=== PATIENT | male | born 1955 | race Caucasian/White ===

== ENCOUNTER 2020-07-25 21:07 | Emergency (ER) | payer OTHER, MEDICAID ==
[~2020-07-25] VITALS: Ht 160 cm; Wt 63.5 kg
[~2020-07-25 21:07] MED LIST: ACET-2619 PO; ATOR10TA51 PO; BISA10SU1 RC; CHLO20TA PO; COL250 PO; LORA10TA19 PO; MAGN400S60 PO; MULT-1640 PO; OMEP20TC10 PO; [UNRECOGNIZED DRUG - CODE] PO
[2020-07-25 21:48] VITALS: BP 125/81
--- NOTE | 2020-07-25 21:56 | NUR ---
Dr. Tineo at triage for MSE.
--- NOTE | 2020-07-25 21:57 | NUR ---
To ED bed 07
--- NOTE | 2020-07-25 22:10 | NUR ---
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 PT IS INTELLECTUALLY DISABLED. DATA CENTER ARCHITECT STATES PT FELL OFF TOILET AROUND 1999. LACERATION NEAR LEFT EYEBROW, AND CONTUSION NEAR LEFT CHEEK. DATA CENTER ARCHITECT DENIES PT LOC. PT UNABLE TO VERBALIZE PAIN. NO DISTRESS NOTED. PERRLA, A&O X1, VSS, R/R EQUAL, AND UNLABORED. UNIT COORDINATOR AT BEDSIDE. SIDE RAIL X2, BED IN LOW POSITION, WILL CONTINUE TO MONITOR. NKDA PMH: PROFOUND ID; SUBDURAL, CEREBRAL HEMMORRHAGE, GASTRIC ULCER, IMPAIRED VISION, HYPELIPIEMIA, SCOLIOSIS, PNEUMONIA, SWALLOWING DIFFICULTIES
--- NOTE | 2020-07-25 22:15 | NUR ---
PT TAKEN TO CT
--- NOTE | 2020-07-25 22:28 | NUR ---
PT RETURN FROM CT
[2020-07-25 23:34] VITALS: BP 125/81
--- NOTE | 2020-07-25 23:35 | NUR ---
PT HAS PROFOUND ID, CORRECTIONAL MANAGER SIGNED D/C PAPERWORK. Patient discharged with v/s stable. Written and verbal after care instructions given and explained. Patient verbalized understanding. Wheel Chair Assisted with by caregiver. All questions addressed prior to discharge. Advised to follow up with PMD.
== END 2020-07-25 23:35 | disposition home or self-care (01) ==
LOC: MED 21:07
DX: S00.212A Abrasion of left eyelid and periocular area, initial encounter (principal); S09.90XA Unspecified injury of head, initial encounter; R62.50 Unspecified lack of expected normal physiological development in childhood; W22.8XXA Striking against or struck by other objects, initial encounter; Y93.89 Activity, other specified; Y92.89 Other specified places as the place of occurrence of the external cause; Y99.8 Other external cause status
CPT/HCPCS: 70450; 72125; 99285

== ENCOUNTER 2021-11-29 19:07 | Emergency (ER) | payer OTHER, MEDICAID ==
[~2021-11-29] VITALS: Ht 162.6 cm; Wt 52.2 kg
[2021-11-29 19:21] VITALS: BP 102/55
[2021-11-29] MEDS ORDERED: ONDANSETRON 4 MG ODT PO ONE (19:55)
--- NOTE | 2021-11-29 19:56 | NUR ---
Wheelchair to bed 5 with caregiver.
[2021-11-29] MEDS ORDERED: DICYCLOMINE HCL LIQUID 20 MG, ALUMINUM HYD/MAG/SIMETHICONE 30 ML, LIDOCAINE VISCOUS 2% ... PO ONE ×3 (20:15)
[2021-11-29] MEDS ORDERED: ALUMINUM HYD/MAG/SIMETHICONE 30 ML UDC ONE (20:20)
[2021-11-29] MEDS ORDERED: DICYCLOMINE HCL LIQUID 10 MG/5 ML UDC ONE (20:21)
[2021-11-29 20:39] LABS: BASOPHILS % (AUTO) 0.3 % (0.0-2.0); EOSINOPHILS % (AUTO) 0.1 % (0.0-4.0); HEMATOCRIT 41.4 % (36-52); HEMOGLOBIN 13.9 g/dL (12.0-18.0); LYMPHOCYTES # (AUTO) 0.8 K/uL (2.0-11.5); LYMPHOCYTES % (AUTO) 8.9 % (20.5-51.1); MEAN CORPUSCULAR HEMOGLOBIN 30 pg (27-31); MEAN CORPUSCULAR HGB CONC 34 g/dL (33-37); MEAN CORPUSCULAR VOLUME 89.6 fL (80-94); MONOCYTES # (AUTO) 0.7 K/uL (0.8-1.0); MONOCYTES % (AUTO) 7.8 % (1.7-9.3); NEUTROPHILS # (AUTO) 7.7 K/uL (1.8-7.7); NEUTROPHILS % (AUTO) 82.9 % (42.2-75.2); PLATELET COUNT (AUTO) 241 K/uL (140-450); RED BLOOD CELL COUNT(AUTO) 4.63 MIL/uL (4.20-6.10); RED CELL DISTRIBUTION WIDTH 14.3 % (11.6-13.7); WHITE BLOOD COUNT (AUTO) 9.3 K/uL (4.8-10.8)
--- NOTE | 2021-11-29 20:54 | NUR ---
PO challenged passed. pt ate apple sauce and drank juice. No nausea or vomitting.
[2021-11-29 20:57] LABS: ALBUMIN 3.3 g/dL (3.4-5.0); ANION GAP 10.7 (8-16); CARBON DIOXIDE 31.1 mmol/L (21-32); CREATININE 0.8 mg/dL (0.6-1.3); POTASSIUM 3.8 mmol/L (3.5-5.1); TOTAL BILIRUBIN 0.2 mg/dL (0.0-1.0)
[2021-11-29] MEDS ORDERED: ONDA-188 SL (22:22)
[2021-11-29 22:34] VITALS: BP 135/60
--- NOTE | 2021-11-29 22:36 | NUR ---
Patient discharged with v/s stable. Written and verbal after care instructions given and explained. Patient alert, oriented and verbalized understanding of instructions. Wheel Chair Assisted with by caregiver. All questions addressed prior to discharge. ID band removed. Patient advised to follow up with PMD. Rx of ZOFRAN given. Patient educated on indication of medication including possible reaction and side effects. Opportunity to ask questions provided and answered.
== END 2021-11-29 22:36 | disposition home or self-care (01) ==
LOC: MED 19:07
DX: R11.2 Nausea with vomiting, unspecified (principal); K29.70 Gastritis, unspecified, without bleeding; Z79.899 Other long term (current) drug therapy; Z98.890 Other specified postprocedural states
CPT/HCPCS: 36415; 80053; 83690; 85025; 99283; Q0162